=== PATIENT | female | born 1950 | race African-American/Black ===

== ENCOUNTER 2017-07-29 15:25 | Emergency (ER) | payer OTHER, MEDICARE ==
[2017-07-29] MEDS ORDERED: Ketorolac Tromethamine 60 MG/2 ML VIAL ONE (16:02)
--- NOTE | 2017-07-29 18:24 | RAD ---
TWO VIEWS LEFT HIP: Indication: Left hip pain. Comparison: None. IMPRESSION: There is moderate degenerative arthrosis of the left hip. No acute fracture or subluxation is eviden t. There is mild left SI and pubic symphysis degenerative change as well. POS: EVANGELINA
== END 2017-07-29 16:47 | disposition home or self-care (01) ==
LOC: ERS 15:25
DX: M16.12 Unilateral primary osteoarthritis, left hip (principal)
CPT/HCPCS: 96372; J1885

== ENCOUNTER 2017-12-13 16:31 | Outpatient (CLI) | payer OTHER, MEDICARE | END 2017-12-13 16:32 | disposition home or self-care (01) | LOC: BICRAD 16:31 | PROVIDERS: ATTEND Family Medicine | DX: M25.562 Pain in left knee (principal); M25.532 Pain in left wrist; M17.12 Unilateral primary osteoarthritis, left knee; M11.262 Other chondrocalcinosis, left knee; M19.032 Primary osteoarthritis, left wrist ==

== ENCOUNTER 2018-08-16 14:42 | Outpatient (CLI) | payer OTHER ==
--- NOTE | 2018-08-16 17:01 | MRI ---
LEFT HIP MRI WITHOUT IV CONTRAST: Date: 08/16/18 HISTORY: 68-year-old female with history of osteoarthritis left hip. TECHNIQUE: Multiplanar, multisequence MRI examination of the left hip is performed. On the large field of view i mages, there is evidence for bilateral fat-containing inguinal hernias, larger on the left side. Ther e appears to be a pessary device within the vaginal canal. There is some bilateral hip joint cartilag e loss with some hypertrophic osteophytosis changes of the femoral head/neck junctions and the aceta buli. There is some abnormal signal associated with the superolateral labrum on the left side, eviden ce for degenerative type labral tear. A similar appearance is noted of the right superolateral labrum . Mild tendinosis of the common hamstring tendon insertion regions bilaterally. No evidence for signi ficant abnormal marrow signal to suggest avascular necrosis, fracture, or acute stress injury. No anjel dence for acute muscle or tendon injury. IMPRESSION: Bilateral hip joint arthrosis and degenerative changes with some generalized cartilage loss and hyper trophic osteophytosis. Evidence for bilateral superolateral labral degenerative type tears. Bilateral common hamstring tendon insertion tendinopathy. Bilateral fat-containing inguinal hernias, slightly larger on the left size. No significant abnormal marrow signal. POS: [facility]
--- NOTE | 2018-08-16 17:25 | MRI ---
MRI OF LUMBAR SPINE NONCONTRAST 08/16/18 HISTORY: Low back pain. Left leg radiculopathy. FINDINGS: Radiographs are not available for direct correlation. Therefore, the lowest lumbar type vertebra will be designated as L5 with the remainder numbered accordingly. The conus medullaris has a normal appea usman. Vertebral body heights are maintained. There is desiccation of all of the intervertebral discs . T12-L1, L1-2: Mild osteophytosis. Central canal and neural foramina are patent. L2-3: Posterior disc bulge and circumferential degenerative changes. Mild stenosis of the central can al and each neural foramen. L3-4: Disc space narrowing. Posterior disc bulge and circumferential degenerative changes. Moderate s tenosis of the central canal and each neural foramen. L4-5: Disc space narrowing. Posterior disc bulge and circumferential degenerative changes. Moderate s tenosis of the central canal. Moderate right and mild left foraminal stenoses. L5-S1: Minimal degenerative spondylolisthesis. Circumferential degenerative changes. Mild stenosis of the central canal. Moderate stenosis of each neural foramen. IMPRESSION: Degenerative changes throughout the lumbar spine, including central canal and foraminal stenoses as d etailed above. POS: [facility]
== END 2018-08-16 14:43 | disposition home or self-care (01) ==
LOC: BICMRI 14:42
PROVIDERS: ATTEND Orthopaedic Surgery
DX: M54.32 Sciatica, left side (principal); M47.896 Other spondylosis, lumbar region; M48.061 Spinal stenosis, lumbar region without neurogenic claudication; M99.83 Other biomechanical lesions of lumbar region; M16.0 Bilateral primary osteoarthritis of hip; K40.20 Bilateral inguinal hernia, without obstruction or gangrene, not specified as recurrent; S73.101A Unspecified sprain of right hip, initial encounter; S73.102A Unspecified sprain of left hip, initial encounter
CPT/HCPCS: 72148

== ENCOUNTER 2018-12-23 12:48 | Emergency (ER) | payer OTHER ==
[2018-12-23] MEDS ORDERED: Acetaminophen 325 MG/10.15 ML UDCUP ONE (13:29)
[2018-12-23] MEDS ORDERED: Acetaminophen 325 MG TAB ONE (13:30)
== END 2018-12-23 13:52 | disposition home or self-care (01) ==
LOC: ERS 12:48
DX: R05 Cough (principal); R09.81 Nasal congestion; M19.90 Unspecified osteoarthritis, unspecified site
CPT/HCPCS: 87081; 87430; 99283

== ENCOUNTER 2019-06-23 11:10 | Outpatient (CLI) | payer MEDICARE, MEDICAID | END 2019-06-23 11:11 | disposition home or self-care (01) | LOC: CTENTCT 11:10 | PROVIDERS: ATTEND Otolaryngology Plastic Surgery within the Head & Neck | DX: J01.80 Other acute sinusitis (principal) | CPT/HCPCS: 70486 ==

== ENCOUNTER 2021-04-22 08:11 | Outpatient (CLI) | payer MEDICARE, MEDICAID | END 2021-04-22 08:12 | disposition home or self-care (01) | LOC: BICCT 08:11 | PROVIDERS: ATTEND Family Medicine | DX: R51.9 Headache, unspecified (principal); J34.1 Cyst and mucocele of nose and nasal sinus ==

== ENCOUNTER 2021-10-13 15:37 | Emergency (ER) | payer MEDICARE, MEDICAID ==
[2021-10-13 16:32] LABS: #Lymphocytes 0.8 thou/uL (1.20-3.40); #Monocytes 0.5 thou/uL (0.11-0.59); #Neutrophils 4.5 thou/uL (1.40-6.50); %Basophils 0.3 % (0.0-1.0); %Eosinophils 0.8 % (0.0-10.0); %Lymphocytes 12.9 % (21.0-51.0); %Monocytes 7.7 % (0.0-10.0); %Neutrophils 78.3 % (42.0-75.0); Hemoglobin 11.2 g/dL (12.0-16.0); Mean Corpuscular HGB CONC 31.9 g/dL (32.0-36.0); Mean Corpuscular Volume 84.7 fL (78.0-98.0); Mean Platelet Volume 8.8 fL (7.4-10.4); Platelet Count 172 thou/uL (130-400); RBC Distribution Width 13.2 % (11.5-14.5); Red Blood Cell (RBC) Count 4.16 mill/uL (4.20-5.40); White Blood Cell (WBC) Count 5.8 thou/uL (4.8-10.8)
[2021-10-13 16:54] LABS: ALT (SGPT) 16 U/L (8-55); AST (SGOT) 18 U/L (5-34); Albumin 3.7 g/dL (3.4-4.8); Alkaline Phosphatase 76 U/L (40-110); Anion Gap 11 mmol/L (10-20); BUN (Urea Nitrogen) 15 mg/dL (9.8-20.1); Bilirubin, Total 0.5 mg/dL (0.2-1.2); Calc. Creatinine Clearance 0 mL/min (70-130); Calcium 9.1 mg/dL (7.8-10.44); Carbon Dioxide 28 mmol/L (23-31); Chloride 106 mmol/L (98-107); Globulin 3.3 g/dL (2.4-3.5); Glucose 106 mg/dL (80-115); Potassium 3.8 mmol/L (3.5-5.1); Sodium 141 mmol/L (136-145)
[2021-10-13 19:18] LABS: Bacteria/HPF None Seen HPF (None Seen); Bilirubin Negative (Negative); Blood, Urine 3+ (Negative); Clarity Clear (Clear); Glucose, Urine (Dipstick) Normal (Negative); Ketone, Urine Negative (Negative); Leukocyte Negative Leu/uL (Negative); Nitrite Negative (Negative); Protein, Urine (Dipstick) Negative (Neg-Trace); RBC/HPF 0-3 HPF (0-3); Specific Gravity, Urine 1.006 (1.002-1.036); Squamous Epithelial 0-3 HPF (0-3); Urobilinogen Normal mg/dL (Less than 2); WBC/HPF 0-3 HPF (0-3)
[2021-10-13] MEDS ORDERED: Ondansetron PF 4 MG/2 ML Vial ONE (20:05)
[2021-10-13] MEDS ORDERED: Morphine 4 MG/ML VIAL ONE (20:05)
== END 2021-10-13 20:52 | disposition home or self-care (01) ==
LOC: ERS 15:37
DX: N81.4 Uterovaginal prolapse, unspecified (principal); M19.90 Unspecified osteoarthritis, unspecified site
CPT/HCPCS: 36415; 80053; 81003; 81015; 83690; 85025; 87086; 96374; 96375; J2270; J2405

== ENCOUNTER 2022-02-06 10:08 | Outpatient (CLI) | payer MEDICARE, MEDICAID | END 2022-02-06 10:09 | disposition home or self-care (01) | LOC: BICCT 10:08 | PROVIDERS: ATTEND Urology | DX: N13.30 Unspecified hydronephrosis (principal); N81.11 Cystocele, midline | CPT/HCPCS: 74178; 82565 ==

== ENCOUNTER 2022-05-22 10:38 | Outpatient (CLI) | payer MEDICARE, MEDICAID | END 2022-05-22 10:39 | disposition home or self-care (01) | LOC: BICMAMMO 10:38 | PROVIDERS: ATTEND Family Medicine | DX: Z12.31 Encounter for screening mammogram for malignant neoplasm of breast (principal) | CPT/HCPCS: 77063; 77067 ==

== ENCOUNTER 2023-03-12 16:03 | Emergency (ER) | payer MEDICARE, MEDICAID | END 2023-03-12 19:29 | disposition home or self-care (01) | LOC: ERS 16:03 | DX: J30.9 Allergic rhinitis, unspecified (principal) | CPT/HCPCS: 71046 ==

== ENCOUNTER 2023-06-04 10:07 | Outpatient (CLI) | payer MEDICARE | END 2023-06-04 10:08 | disposition home or self-care (01) | LOC: RAD 10:07 | PROVIDERS: ATTEND Internal Medicine Gastroenterology | DX: R13.10 Dysphagia, unspecified (principal); K21.9 Gastro-esophageal reflux disease without esophagitis | CPT/HCPCS: 74230 ==

== ENCOUNTER 2023-08-30 12:31 | Emergency (ER) | payer MEDICARE ==
[2023-08-30] MEDS ORDERED: Dexamethasone 4 mg/ml Vial ONE (14:15)
== END 2023-08-30 15:15 | disposition home or self-care (01) ==
LOC: ERS 12:31
DX: J01.90 Acute sinusitis, unspecified (principal)
CPT/HCPCS: 99283; J1100

== ENCOUNTER 2024-07-15 15:24 | Outpatient (CLI) | payer MEDICARE, MEDICAID | END 2024-07-15 15:25 | disposition home or self-care (01) | LOC: BICMAMMO 15:24 | PROVIDERS: ATTEND Family Medicine | DX: Z13.820 Encounter for screening for osteoporosis (principal); M85.89 Other specified disorders of bone density and structure, multiple sites | CPT/HCPCS: 77080 ==

== ENCOUNTER 2025-08-07 13:58 | Outpatient (CLI) | payer OTHER | END 2025-08-07 13:59 | disposition home or self-care (01) | LOC: BICMAMMO 13:58 | PROVIDERS: ATTEND Family Medicine | DX: Z12.31 Encounter for screening mammogram for malignant neoplasm of breast (principal) | CPT/HCPCS: 77063; 77067 ==